=== PATIENT | female | born 1980 | race Caucasian/White ===

== ENCOUNTER → 2021-06-05 | Outpatient (CLI) | payer OTHER ==
[~2021-06-05] MED LIST: ADDERALL XR 2020 MG PO; AUGMENTIN 875-1 EACH PO; AZITHROMYCIN250 MG PO; BUSPAR 10MG10 MG PO; FLUOXETINE HCL60 MG PO; INDERAL TAB 1010 MG PO; OMNICEF 300 MG300 MG PO; SEROQUEL50 MG PO; VRAYLAR3 MG PO
== END ==
LOC: KOH-I 14:47
DX: J18.9 Pneumonia, unspecified organism (principal); J84.9 Interstitial pulmonary disease, unspecified
CPT/HCPCS: 71046